=== PATIENT | female | born 1980 | race Caucasian/White ===

== ENCOUNTER 2023-11-25 15:50 | Outpatient (OUT) | payer BC, SELFPAY ==
--- NOTE | 2023-11-25 15:58 | MM_ITS ---
Patient Name: NOEL GUILLEN MR#: [id number] : 1980 Exam Date: 11/25/2023 Ordering Doctor: Non-Staff Physician RADIOLOGY REPORT PROCEDURE: MM TOMOSYNTHESIS SCREENING BI COMPARISON: None. INDICATIONS: screening Calculator Name NCI Breast Cancer Risk Assessment Tool 5 Year Breast Cancer Risk 0.40% Lifetime Breast Cancer Risk 7.30% Personal Breast Cancer No Personal Ovarian Cancer No Treatments None Family Cancers None LOCATION: [facility] BREAST COMPOSITION: Scattered areas fibroglandular density. FINDINGS: DIAGNOSTIC CATEGORY 1--NEGATIVE. RIGHT BREAST: No significant suspicious finding. LEFT BREAST: No significant suspicious finding. RECOMMENDATIONS: ROUTINE MAMMOGRAM AND CLINICAL EVALUATION IN 12 MONTHS. PLEASE NOTE: A NORMAL MAMMOGRAM DOES NOT EXCLUDE THE POSSIBILITY OF BREAST CANCER. A CLINICALLY SUSPICIOUS PALPABLE LUMP SHOULD BE BIOPSIED. Dictated by: John Kenny MD on 11/26/2023 at 07:18 Approved by: John Kenny MD on 11/26/2023 at 07:19
== END 2023-11-25 15:51 | disposition home or self-care (01) ==
LOC: MAMMO 15:50
DX: Z12.31 Encounter for screening mammogram for malignant neoplasm of breast (principal)
CPT/HCPCS: 77063; 77067

== ENCOUNTER 2024-01-20 20:00 | Outpatient (REF) | payer BC, SELFPAY ==
--- OUTSIDE RECORDS SUMMARY | 2024-01-20 20:06 | XMS_ITS | CCD ---
Author Organization [facility] Care Team Providers Care Head Cd Reactor Operator Name Role Phone SYLVIA ., DR RAMÍREZ Admitting Unavailabl e KARASIK ., DR RAMÍREZ Attending Unavailabl e KARASIK ., DR RAMÍREZ Consulting Unavailabl e Problems Problem Classification Problem Date Documented Date Episodic/Chronic Immunizations and screening for infectious disease (1 source) Encounter for screening for human papillomavirus (HPV); Translations: [ENC SCREENING HUMAN PAPILLOMAVIRUS] Onset: 01-23-2023 Episodic Other screening for suspected conditions (not mental disorders or infectious disease) (4 sources) Encounter for screening for malignant neoplasm of cervix; Translations: [ENC SCREENING MALIG NEOPLASM CERV] Onset: 01-15-2023 Episodic Results Test Name Value Interpretation Reference Range Facility PAP ACOG PANEL 2: 30 to 65on 01-23-2023 . . Normal [facility] Comment on above: Result Comment: Performed at: WB Performed By: #### [id number] #### [facility] [address] [address] [address] Dona Mancilla Age Gdln ACOG Testing 30-65 Normal [facility] Comment on above: Performed By: #### [id number] #### [facility] [address] [address] [address] Dona Mancilla DIAGNOSIS: Comment Normal [facility] Comment on above: Result Comment: NEGATIVE FOR INTRAEPITHE LIAL LESION OR MALIGNANCY. Performed at: WB Performed By: #### [id number] #### [facility] [address] [address] [address] Dona Mancilla HPV Aptima Negative Normal Negative [facility] Comment on above: Result Comment: This nucleic acid amplif ication test detects fourteen high-risk HPV types (16,18,31,33,35,39,45,51,52,56,58,59,66,68) without differentiation. Performed at: =G Performed By: #### [id number] #### [facility] [address] [place] [address] Dr. Dona Mancilla HPV Genotype Reflex Comment Normal [facility] Comment on above: Result Comment: Criteria not met, HPV Ge notype not performed. Performed at: WB Performed By: #### [id number] #### [facility] [address] [place] [address] Dr. Dona Mancilla Methodology: Comment Normal [facility] Comment on above: Result Comment: This liquid based ThinPr ep(R) pap test was screened with the use of an image guided system. Performed at: WB Performed By: #### [id number] #### [facility] [address] [place] [address] Dr. Dona Mancilla Note: Comment Normal [facility] Comment on above: Result Comment: The Pap smear is a scree jena test designed to aid in the detection of premalignant and malignant conditions of the uterine cervix. It is not a diagnostic procedure and should not be used as the sole means of detecting cervical cancer. Both false-positive and false-negative reports do occur. . Performed at: WB Performed By: #### [id number] #### [facility] [address] [place] [address] Dr. Dona Mancilla Performed by: Comment Normal [facility] Comment on above: Result Comment: Chelsea Bennett Cytote chnologist (ASCP) Performed at: WB Performed By: #### [id number] #### [facility] [address] [place] [address] Dr. Dona Mancilla Specimen adequacy: Comment Normal [facility] Comment on above: Result Comment: Satisfactory for evaluat ion. Endocervical and/or squamous metaplastic cells (endocervical component) are present. Performed at: WB Performed By: #### [id number] #### [facility] [address] [place] [address] Dr. Dona Mancilla Lab - AP Resultson 2 Lab - AP Results [id number] 0OTGTIFF [facility] T-Spoton 12-18-2021 T-Spot See Report Normal [facility] Comment on above: Performed By: #### [id number], [id number] #### [facility] (DEFAULT) [address] [place] [id number] Lab - Toxicology Resultson 0 12-16-2021 Lab - Toxicology Results [id number] 0OTGTIFF [facility] Nicotine Metabolite, Urine L Con 12-14-2021 Cotinine LC Negative Invalid Interpretation Code [id number] [facility] Comment on above: Result Comment: Performed At: [facility] [address] [facility] [place] [id number] Corbin Hull PhD Ph:[phone] Performed By: #### 1 [id number] #### [facility] (DEFAULT) [address] [place] [address] Hep B Surface Ab Qual LCon 0 12-13-2021 Hep B Surface Ab LC Reactive Invalid Interpretation Code [facility] Comment on above: Result Comment: Non Reactive: Inconsiste nt with immunity, less than 10 mIU/mL Reactive: Consistent with immunity, greater than 9.9 mIU/mL Performed At: [facility] [id number] Chase Stapleton PhD Ph:[phone] Performed By: #### 3 [id number] #### [facility] (DEFAULT) [address] [place], [place] [id number] Measles/Mumps/Rubella Immuni ty LCon 12-13-2021 Mumps Abs, IgG LC 161.0 AU/mL Invalid Interpretation Code Immune >10.9 [facility] Comment on above: Result Comment: Negative <9.0 Equivocal 9.0 - 10.9 Positive >10.9 A positive result generally indicates past exposure to Mumps virus or previous vaccination. Performed At: [facility] [place], [place] [id number] Chase Stapleton PhD Ph:[phone] Performed By: #### 3 [id number] #### [facility] (DEFAULT) [address] [place] [address] Rubella Antibodies, IgG LC 5.94 index Invalid Interpretation Code Immune >0.99 [facility] Comment on above: Result Comment: Non-immune <0.90 Equivocal 0.90 - 0.99 Immune >0.99 Performed By: #### 3 [id number] #### [facility] (DEFAULT) [address] [place] [address] Rubeola Ab, IgG, EIA LC 14.2 AU/mL Low Immune >16.4 [facility] Comment on above: Result Comment: A second sample should b e collected and tested no less than 2-4 weeks. Negative <13.5 Equivocal 13.5 - 16.4 Positive >16.4 Presence of antibodies to Rubeola is presumptive evidence of immunity except when acute infection is suspected. Performed By: #### 3 [id number] #### [facility] (DEFAULT) [address] [place] [address] Encounters Encounter Date Encounter Type Care Provider Facility Start: 01-15-2023 End: 01-15-[address] DESIREE WARD . Facility: Payers Date Payer Category Payer Unknown [id number] 1957 Unknown [id number] Summary Purpose Family History No Family History Records FoundNo Family History Records Found Advance Directives No Advanced Directives Records FoundNo Advanced Directives Records Found Additional Source Comments INFORMATION SOURCE (unrecogn ized section and content) DATE CREATED AUTHOR 12/19/2021 [facility] DATE CREATED AUTHOR AUTHOR'S ORGANIZ ATION 01/24/2023 [facility] FOR RECORDS PERTAINING TO PATIENTS WHO ARE OR HAVE BEEN ENROLLED IN A CHEMICAL DEPENDENCY/SUBSTANCEABUSE PROGRAM, SOME INFORMATION MAY BE OMITTED. This clinical summary was aggregated from multiple sources. Caution should be exercised in using it in the provision of clinical care. This summary normalizes information from multiple sources, and as a consequence, information in this document may materially change the coding, format and clinical context of patient data. In addition, data may be omitted in some cases. CLINICAL DECISIONS SHOULD BE BASED ON THE PRIMARY CLINICAL RECORDS. [facility] [employer] [facility]. provides no warranty or guarantee of the accuracy or completeness of information in this document.
[2024-01-26 15:10] LABS: Age Gdln ACOG Testing Note (.); HPV Aptima Negative (Negative); IGP, Aptima HPV, rfx 16/18,45 Note (.)
== END 2024-01-20 20:01 | disposition home or self-care (01) ==
LOC: LAB 20:00
PROVIDERS: Visit Provider Physician Assistant
DX: Z01.419 Encounter for gynecological examination (general) (routine) without abnormal findings (principal)
CPT/HCPCS: 87624; G0145

== ENCOUNTER 2025-01-23 18:32 | Outpatient (REF) | payer BC, SELFPAY ==
--- OUTSIDE RECORDS SUMMARY | 2025-01-23 18:38 | XMS_ITS | CCD ---
Author Organization [facility] Care Team Providers Care Travel Service Consultant Name Role Phone SYLVIA ., DR RAMÍREZ Admitting Contreras WARD ., DR RAMÍREZ Attending Contreras WARD ., DR RAMÍREZ Consulting KIKA Miranda Attending AYSHA Black Attending DREW Hernandez Referring DREW Hernandez Primary Care Drew Hernandez MD Primary Care Provider Medications Current Medications Medication Drug Class(es) Dates Sig (Normalized) Sig (Original) azithromycin 250 mg oral tablet (1 source) Macrolide Antimicrobial Start: 08-17-2024 End: 08-22-2024 take 1 tablet by mouth in the morning, then take 2 tablets by mouth once daily, then take 1 tablet by mouth once daily azithromycin (ZITHROMAX) 250 mg tablet Take 1 tablet (250 mg total) by mouth in the morning for 5 days. Take 2 tablets the first day, then 1 tablet daily for 4 days.. 6 tablet 08/17/2024 08/22/2024 Active Ethinyl Estradiol / Ferrous fumarate / Norethindrone (1 source) Estrogen Start: 03-06-2018 take 1 tablet by mouth in the morning .03/30, 28, 1.5 mg-30 mcg (21)/75 mg (7) tablet Take 1 tablet by mouth in the morning. 11 03/06/2018 Active predniSONE 10 mg oral tablet (1 source) Start: 08-17-2024 End: 08-25-2024 take 6 tablets by mouth once daily, then take 1 tablet by mouth once daily at mealtime predniSONE (STERAPRED DS) 10 mg tablet pack Take by mouth daily for 8 days. 6 tabs qd x 3 d then 1 less each day with food 33 tablet 08/17/2024 08/25/2024 Active SUMAtriptan 100 mg oral tablet (2 sources) Serotonin-1b and Serotonin-1d Receptor Agonist Start: 03-26-2021 End: 08-17-2024 SUMAtriptan (IMITREX) 100 mg tablet Take 1 tablet (100 mg total) by mouth once as needed for migraine. May repeat in 2 hours if unresolved. Do not exceed 200 mg in 24 hours. 9 tablet 3 08/17/2024 Active tiZANidine 4 mg oral tablet (1 source) Central alpha-2 Adrenergic Agonist Start: 05-07-2023 take 1 tablet by mouth three times daily tiZANidine (ZANAFLEX) 4 mg tablet Take 1 tablet (4 mg total) by mouth 3 (three) times a day. 30 tablet 05/07/2023 Active Completed/Discontinued Medications Medication Drug Class(es) Dates Sig (Normalized) Sig (Original) methylPREDNISolone (1 source) Corticosteroid Start: 11-30-2022 End: 08-17-2024 methylPREDNISolone (MEDROL, YADI,) 4 mg tablet follow package directions 21 tablet 11/30/2022 08/17/2024 Discontinued Problems Active Problems Problem Classification Problem Date Documented Date Episodic/Chronic Chronic obstructive pulmonary disease and bronchiectasis (2 sources) Bronchitis, not specified as acute or chronic; Translations: [Bronchitis] Onset: 08-17-2024 08-17-2024 Episodic Headache; including migraine (1 source) Migraine with aura; Translations: [Migraine with aura, not intractable, without status migrainosus] Onset: 03-30-2018 03-30-2018 Chronic Immunizations and screening for infectious disease (1 source) Encounter for screening for human papillomavirus (HPV); Translations: [ENC SCREENING HUMAN PAPILLOMAVIRUS] Onset: 01-23-2023 Episodic Other lower respiratory disease (1 source) Cough Onset: 08-17-2024 Episodic Other screening for suspected conditions (not mental disorders or infectious disease) (4 sources) Encounter for screening for malignant neoplasm of cervix; Translations: [ENC SCREENING MALIG NEOPLASM CERV] Onset: 01-15-2023 Episodic Past or Other Problems Problem Classification Problem Date Documented Da te Episodic/Chronic Mood disorders (1 source) Mood disorders Onset: 12-03-2022 12-03-2022 Unclassified (1 source) Onset: 03-26-2021 03-26-2021 Results Test Name Value Interpretation Reference Range Facility PAP ACOG PANEL 2: 30 to 65on 01-23-2023 . . Normal [facility] Comment on above: Result Comment: Performed at: WB Performed By: #### [id number] #### [facility] [address] [address] [address] Dona Mancilla Age Gdln ACOG Testing 30-65 Normal [facility] Comment on above: Performed By: #### [id number] #### [facility] [address] [address] [address] Dona Mancilla DIAGNOSIS: Comment Normal [facility] Comment on above: Result Comment: NEGATIVE FOR INTRAEPITHE LIAL LESION OR MALIGNANCY. Performed at: WB Performed By: #### [id number] #### [facility] [address] [address] [address] Dona Mancilla HPV Aptima Negative Normal Negative [facility] Comment on above: Result Comment: This nucleic acid amplif ication test detects fourteen high-risk HPV types (16,18,31,33,35,39,45,51,52,56,58,59,66,68) without differentiation. Performed at: =G Performed By: #### 4 [id number] #### [facility] [address] [address] [address] Dona Mancilla HPV Genotype Reflex Comment Normal [facility] Comment on above: Result Comment: Criteria not met, HPV Ge notype not performed. Performed at: WB Performed By: #### 4 [id number] #### [facility] [address] [address] [address] Dona Mancilla Methodology: Comment Normal [facility] Comment on above: Result Comment: This liquid based ThinPr ep(R) pap test was screened with the use of an image guided system. Performed at: WB Performed By: #### [id number] #### [facility] [address] [place] [address] Dr. Dona Mancilla Note: Comment Normal [facility] Comment on above: Result Comment: The Pap smear is a scree jena test designed to aid in the detection of premalignant and malignant conditions of the uterine cervix. It is not a diagnostic procedure and should not be used as the sole means of detecting cervical cancer. Both false-positive and false-negative reports do occur. . Performed at: WB Performed By: #### [id number] #### [facility] [address] [place] [address] Dr. Dona Mancilla Performed by: Comment [facility] Comment on above: Result Comment: Chelsea Bennett Cytote chnologist (ASCP) Performed at: WB Performed By: #### 4 [id number] #### [facility] [address] [place] [address] Dr. Dona Mancilla Specimen adequacy: Comment [facility] Comment on above: Result Comment: Satisfactory for evaluat ion. Endocervical and/or squamous metaplastic cells (endocervical component) are present. Performed at: WB Performed By: #### 4 [id number] #### [facility] [address] [place] [address] Dr. Dona Mancilla Lab - AP [facility] - AP Results [id number] 20 [id number]#1.0 0OTGTIFF [facility] T-Spoton 12-18-2021 T-Spot See Report [facility] Comment on above: Performed By: #### [id number], [id number] #### [facility] (DEFAULT) [address] [place] [address] Lab - Toxicology Resultson 0 12-16-2021 Lab - Toxicology Results [id number]#1.0 0OTGTIFF [facility] Nicotine Metabolite, Urine L Con 12-14-2021 Cotinine LC Negative Invalid Interpretation Code [id number] [facility] Comment on above: Result Comment: Performed At: [facility] [place] [address] [facility] [place], [place] [id number] Corbin Hull PhD Ph:[phone] Performed By: #### 1 [id number] #### [facility] (DEFAULT) [address] [place] [address] Hep B Surface Ab Qual LCon 0 12-13-2021 Hep B Surface Ab LC Reactive Invalid Interpretation Code [facility] Comment on above: Result Comment: Non Reactive: Inconsiste nt with immunity, less than 10 mIU/mL Reactive: Consistent with immunity, greater than 9.9 mIU/mL Performed At: [address] [id number] Chase Stapleton PhD Ph:[phone] Performed By: #### 3 [id number], [id number] #### [facility] (DEFAULT) [address] [place], [place] [id number] Measles/Mumps/Rubella Immuni ty LCon 12-13-2021 Mumps Abs, IgG LC 161.0 AU/mL Invalid Interpretation Code Immune >10.9 [facility] Comment on above: Result Comment: Negative <9.0 Equivocal 9.0 - 10.9 Positive >10.9 A positive result generally indicates past exposure to Mumps virus or previous vaccination. Performed At: [address] [id number] Chase Stapleton PhD Ph:[phone] Performed By: #### 3 [id number] #### [facility] (DEFAULT) [address] [place] [address] Rubella Antibodies, IgG LC 5.94 index Invalid Interpretation Code Immune >0.99 [facility] Comment on above: Result Comment: Non-immune <0.90 Equivocal 0.90 - 0.99 Immune >0.99 Performed By: #### 3 [id number] #### [facility] (DEFAULT) [address] [place] [address] Rubeola Ab, IgG, EIA LC 14.2 AU/mL Low Immune >16.4 [facility] Comment on above: Result Comment: A second sample should b e collected and tested no less than 2-4 weeks. Negative <13.5 Equivocal 13.5 - 16.4 Positive >16.4 Presence of antibodies to Rubeola is presumptive evidence of immunity except when acute infection is suspected. Performed By: #### 3 [id number] #### [facility] (DEFAULT) [address] [place] [address] Vital Signs Date Time Vital Sign Value Performing Clinician Faci linday 08-17-2024 14:21-0400 Body mass index (BMI) [Ratio] 28.32 kg/m2 Ayshara Henao [employer] REPA[employer] [facility] 08-17-2024 14:21-0400 Body temperature 98.4 [degF] Aysha Henao [employer] REPA[employer] [facility]: [facility] 08-17-2024 14:21-0400 Body weight 74.84 kg Ayshara Henao [employer] REPA[employer] Work Phone: [facility] 08-17-2024 14:21-0400 Diastolic blood pressure 60 mm[Hg] Aysha Juliano [employer] REPA[employer] Work [facility]: [facility] 08-17-2024 14:21-0400 Heart rate 96 /min Ayshara Saenzstaceynemo [employer] REPAIRER-[employer] Work [facility] 08-17-2024 14:21-0400 Respiratory rate 16 /min Aysha Danyazalia [employer] REPA[employer]ER-[employer] Work [facility]: [facility] 08-17-2024 14:21-0400 SaO2% (BldA) [Mass fraction] 99 % Ayshara Saenzstaceynemo [employer] REPAIRER-[employer] Work [facility] 08-17-2024 14:21-0400 Systolic blood pressure 112 mm[Hg] Aysha Henao [employer] REPAIRER-[employer]HER Work Phone[facility] Encounters Encounter Date Encounter Type Care Provider Facility Start: 08-17-2024 End: 08-17-2024 Office outpatient visit 15 minutes Aysha Henao [employer] REPAIR[employer] Work Phone: [facility] Comment on above: Bronchitis (Primary Dx) Start: 08-17-2024 End: 08-17-2024 ambulatory [facility] Start: 01-20-2024 End: 01-20-2024 ambulatory KIKA PEREZ Not Available Start: 01-15-2023 End: 01-15-[address] DESIREE WARD . Facility: Procedures Date Procedure Procedure Detail Performing Clinician Start: 01-15-2023 Microscopic observat ion [Identifier] in Cervix by Cyto stain Aysha Henao [employer] REPA[employer] Work Phone: Start: 12-03-2022 Adult depression scr eening assessment Aysha Henao [employer] REPA[employer] Work Phone: Plan of Treatment Date Care Activity Detail Author Start: 01-15-2026 Screening for malign ant neoplasm of cervix Pap Smear [facility] Start: 08-17-2025 Adult BMI Screening Adult BMI Screen ing [facility] Start: 08-17-2025 Tobacco Screening Tobacco Screening [facility] Start: 08-31-2024 End: 08-31-2024 Patient encounter procedure 08/31/2024 8:45 AM EDT Office Visit [facility] [address] [place] [address] Drew Crews MD [address] [place] [address] [facility] Start: 07-02-2024 Influenza vaccination Influenza Vacc ine [facility] Start: 12-03-2023 Depression Screening Depression Scre ening [facility] Start: 2001 DTaP,Tdap and Td Vaccines (1 - Tdap) DTaP,Tdap and Td Vaccines (1 - Tdap) [facility] Payers Date Payer Category Payer [employer] - PPO ANTHEM [id number] 1982 Unknown [id number] 1982 Unknown [id number] 1982 Unknown [id number] 1959 Unknown [id number] Social History Date Type Detail Facility Start: 11-30-2022 Tobacco smoking stat [facility] Never smoked tobacco [facility] Start: 11-30-2022 Tobacco use and exposure Smoke less tobacco non-user [facility] Start: 08-17-2024 Alcoholic beverage intake Curr ent drinker of alcohol (finding) [facility] Start: 09-21-2018 End: 12-12-2020 History of Social function [facility] Start: 09-21-2018 End: 12-12-2020 Alcohol Use Disorder Identification Test - Consumption [AUDIT-C] [facility] Frequency of Alcohol Consumption 2-4 times a month [facility] Start: 03-30-2018 Alcohol Comment social [facility] Start: 1980 Sex assigned at Not on file [facility] Start: 06-05-2015 Sex Female (finding) [facility] History of Present illness Narrative 08-17-2024 Aysha Henao APRN-FIRST CRUSHER - 08/17/2024 2:15 PM EDT Note Date & Type Note Facility 08-17-2024 History of Presen t illness Narrative Images from the original note were not included. [address] [place] [id number] SUBJECTIVE: Patient ID: Lilia Beard is a 44 y.o. female. Patient presents to the office for complaints of harsh cough for the past week. She states the cough is keeping her up at night. She did have fever and body aches at the start of the symptoms but that went away. Cough Pertinent negatives include no chest pain, ear pain, fever, rash, sore throat or shortness of breath. The following portions of the patient's history were reviewed and updated as appropriate: allergies, current medications, past family history, past medical history, past social history, past surgical history and problem list. REVIEW OF SYSTEMS: Review of Systems Constitutional: Negative for fatigue, fever and unexpected weight change. HENT: Negative for congestion, ear pain, sinus pressure, sinus pain and sore throat. Eyes: Negative for photophobia, pain, discharge and visual disturbance. Respiratory: Positive for cough. Negative for shortness of breath. Cardiovascular: Negative for chest pain, palpitations and leg swelling. Gastrointestinal: Negative for abdominal pain, diarrhea, nausea and vomiting. Endocrine: Negative for polydipsia, polyphagia and polyuria. Genitourinary: Negative for difficulty urinating, frequency, hematuria and urgency. Musculoskeletal: Negative for arthralgias, gait problem, joint swelling and neck pain. Skin: Negative for pallor and rash. Neurological: Negative for dizziness, weakness, light-headedness and numbness. Psychiatric/Behavioral: Negative for sleep disturbance. The patient is not nervous/anxious. PHYSICAL EXAMINATION: Vitals: 08/17/24 1421 BP: 112/60 Pulse: 96 Resp: 16 Temp: 36.9 C (98.4 F) SpO2: 99% Weight: 74.8 kg (165 lb) Physical Exam Constitutional: Appearance: She is well-developed. HENT: Head: Normocephalic and atraumatic. Right Ear: External ear normal. Left Ear: External ear normal. Eyes: Conjunctiva/sclera: Conjunctivae normal. Pupils: Pupils are equal, round, and reactive to light. Cardiovascular: Rate and Rhythm: Normal rate and regular rhythm. Heart sounds: Normal heart sounds. Pulmonary: Effort: Pulmonary effort is normal. Breath sounds: Examination of the right-upper field reveals wheezing. Examination of the left-upper field reveals wheezing. Wheezing present. Musculoskeletal: Cervical back: Normal range of motion. Skin: General: Skin is warm and dry. Neurological: Mental Status: She is alert and oriented to person, place, and time. Psychiatric: Mood and Affect: Mood normal. ASSESSMENT/PLAN: Lilia was seen today for cough. Diagnoses and all orders for this visit: Bronchitis Other orders - SUMAtriptan (IMITREX) 100 mg tablet; Take 1 tablet (100 mg total) by mouth once as needed for migraine. May repeat in 2 hours if unresolved. Do not exceed 200 mg in 24 hours. - predniSONE (STERAPRED DS) 10 mg tablet pack; Take by mouth daily for 8 days. 6 tabs qd x 3 d then 1 less each day with food - azithromycin (ZITHROMAX) 250 mg tablet; Take 1 tablet (250 mg total) by mouth in the morning for 5 days. Take 2 tablets the first day, then 1 tablet daily for 4 days.. Follow-up: Prednisone taper with food [employer] Refilled imitrex Follow up in two weeks SHANNAN Nair 08/17/24 1442 documented in this encounter [facility] Evaluation note Note Date & Type Note Facility Evaluation note Diagnosis Bronchitis- Primary Bronchitis, not specified as acute or chronic documented [facility] this encounter [facility] Instructions Attachments Note Date & Type Note Facility Instructions The following attachments cannot be sent through Care Everywhere.Acute bronchitis (Israeli)documented in this encounter [facility] Summary Purpose Family History No Family History Records FoundNo Family History Records FoundNo Family History Records FoundNo Family History Records Found Advance Directives No Advanced Directives Records FoundNo Advanced Directives Records FoundNo Advanced Directives Records FoundNo Advanced Directives Records Found Additional Source Comments INFORMATION SOURCE (unrecogn ized section and content) DATE CREATED AUTHOR 12/19/2021 [facility] DATE CREATED AUTHOR AUTHOR'S ORGANIZ ATION [facility]/2023 [facility] DATE CREATED AUTHOR AUTHOR'S ORGANIZ ATION 01/22/2024 [facility] EPIC DATE CREATED AUTHOR AUTHOR'S ORGANIZ ATION 08/20/2024 [facility] Reason for Visit (unrecogniz ed section and content) Reason Comments Cough Care Teams (unrecognized sec tion and content) Travel Service Consultant Relationship Specialty Start Date End Date Drew Crews MD [address] [place] [address] PCP - General Family Medicine 03/25/18 FOR RECORDS PERTAINING TO PATIENTS WHO ARE [...] BE BASED ON THE PRIMARY CLINICAL RECORDS. [facility]. provides no warranty or guarantee of the accuracy or completeness of information in this document.
== END 2025-01-23 18:33 | disposition home or self-care (01) ==
LOC: LAB 18:32
PROVIDERS: Visit Provider Physician Assistant
DX: Z01.419 Encounter for gynecological examination (general) (routine) without abnormal findings (principal)
CPT/HCPCS: 88175